=== PATIENT | male | born 1995 | race African-American/Black ===

== ENCOUNTER 2021-10-11 13:32 | Observation (INO) | payer BC, SELFPAY ==
[2021-10-11 07:45] VITALS: BP 131/78; PULSE 88; RESP 12; TEMP 36.3; O2SAT 100
[2021-10-11 08:37] VITALS: BMI 26.6
--- NOTE | 2021-10-11 08:53 | ADMGEN ---
This patient, Willa Gomez, was admitted to 2 Medical Room 249-01. Patient/family oriented to hospital policies and general routines including ID bracelet, bed and alarms, visiting hours, pain management, procedures, bathroom and other care routines, personal items, smoking policy, room service/diet, and visiting hours. Information on how to activate the Rapid Response Team has been discussed. Patient/Family are encouraged to report perceived risks to care and to ask questions if they do not understand what they are told or what they should do. Patient in bed resting comfortably with no complaints at this time. Will continue to monitor patient.
[2021-10-11 09:12] LABS: Hematocrit 48.2 % (42.0-52.0); Mean Corpuscular HGB Conc 33.2 g/dl (32-36); Mean Corpuscular Hemoglobin 26.8 pg (26-34); Mean Corpuscular Volume 80.6 fl (80-100); Platelet Count Result 300 k/mm3 (150-375); Red Blood Count 5.98 M/mm3 (4.6-6.20); White Blood Count 8.6 K/mm3 (4.5-10.0)
[2021-10-11 09:23] LABS: Alanine Aminotransferase 22 U/L (4-50); Alkaline Phosphatase 58 U/L (38-126); Anion Gap 10 mmol/L (8-16); Aspartate Amino Transferase 26 U/L (17-59); Bilirubin,Total 0.5 mg/dL (0.2-1.3); Blood Urea Nitrogen 12 mg/dL (9-20); Calcium 9.1 mg/dL (8.4-10.2); Carbon Dioxide 24 mmol/L (22-30); Chloride 104 mmol/L (98-107); Estimated CRCL calculation 86 ml/min; Estimated Glomerular Filt Rate > 60; Glucose 105 mg/dL (65-110); Magnesium 1.7 mg/dL (1.6-2.3); Potassium 3.9 mmol/L (3.4-5.0); Sodium 138 mmol/L (137-145)
[2021-10-11] MEDS: HYDROcodone/acetaminophen (*CRX) 5-325 MG TABLET 1 TAB PO ×3 (09:32→21:26)
[2021-10-11] MEDS: AMOXICILLIN/CLAVULANATE K 500-125 MG TAB 1 TABLET PO ×3 (09:33→21:26)
[2021-10-11] MEDS: SODIUM CHLORIDE 0.9% IV 1,000 ML 150 ML IV CONT ×3 (09:38→21:30)
--- NOTE | 2021-10-11 11:27 | PM.IMHP ---
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 abdominal pain and was persisting he was taken to [facility] Department further evaluation, CT scan of abdomen showed enteritis patient was started on Flagyl and Cipro and discharged, upon arrival at home patient took Flagyl and immediately developed rash the patient went back to the ER was given Benadryl and Pepcid, and transferred here further evaluation as there was no GI at the [facility], patient has no other medical history and is not known to have any allergies and apparently patient had never take Flagyl before, I have started the patient on Augmentin, on IV fluid and clear liquid will continue to monitor patient and reassess in the morning further recommendation to follow patient admitted observation status. Chief Complaint: abdominal pain Review of Systems Review of Systems: All systems reviewed & are unremarkable except as noted in HPI and below PMFSH Social History Social History Smoking status: Never smoker Alcohol intake: never Substance use: never Substance use type: does not use Spiritual care concerns: No Meds Home Medications and Allergies Home Medications Medication Instructions Recorded Confirmed Type No Home Medications 10/11/21 10/11/21 History Allergies Allergy/AdvReac Type Severity Reaction Status Date / Time ibuprofen [From Advil] Allergy Rash Verified 10/11/21 08:44 metronidazole [From Flagyl] Allergy Rash Verified 10/11/21 08:44 Vital Signs Vital Signs - 24 hr 10/11/21 07:45 Temperature 97.4 F L Pulse Rate 88 Respiratory Rate 12 Blood Pressure 131/78 Pulse Oximetry 100 Exam Narrative: Patient is comfortable, NAD HEENT: eyes are clear and none icteric LUNGS: normal respiratory effort ABD: diffusely tender Lower extremities: no edema SKIN: nonjaundiced Neuro: grossly intact. H&P: Results Labs Labs: Short CBC 10/11/21 Range/Units 08:25 WBC 8.6 (4.5-10.0) K/mm3 Hgb 16.0 (14.0-18.0) g/dL Hct 48.2 (42.0-52.0) % Plt Count 300 (150-375) k/mm3 BMP 10/11/21 08:25 Sodium 138 Potassium 3.9 Chloride 104 Carbon Dioxide 24 BUN 12 Creatinine 0.90 Glucose 105 Calcium 9.1 Liver Function 11/14/21 Range/Units 08:25 Total Bilirubin 0.5 (0.2-1.3) mg/dL AST 26 (17-59) U/L ALT 22 (4-50) U/L Alkaline Phosphatase 58 (38-126) U/L Albumin 4.0 (3.5-5.1) g/dL Assessment and Plan Assessment and plan (1) Enteritis: Code(s): K52.9 - Noninfective gastroenteritis and colitis, unspecified Status: Acute Assessment and Plan: 10/11/21 11:27 patient 36-year-old male from [facility] currently at the [employer] for [facility], he developed the abdominal pain and was persisting he was taken to [facility] further evaluation, CT scan of abdomen showed enteritis patient was started on Flagyl and Cipro and discharged, upon arrival at home patient took Flagyl and immediately developed rash the patient went back to the ER was given Benadryl and Pepcid, and transferred here further evaluation as there was no GI at the [facility], patient has no other medical history and is not known to have any allergies and apparently patient had never take Flagyl before, I have started the patient on Augmentin, on IV fluid and clear liquid will continue to monitor patient and reassess in the morning further recommendation to follow Quality VTE Prophylaxis VTE prophylaxis: mechanical ordered
[2021-10-11 14:58] VITALS: BP 127/50; PULSE 90; RESP 16; TEMP 36.7; O2SAT 100
[2021-10-11 22:00] VITALS: BP 134/80; PULSE 77; RESP 18; TEMP 36.7; O2SAT 100
[2021-10-12] MEDS: SODIUM CHLORIDE 0.9% IV 1,000 ML 150 ML IV CONT ×3 (04:35→18:35)
[2021-10-12] MEDS: HYDROcodone/acetaminophen (*CRX) 5-325 MG TABLET 1 TAB PO ×3 (04:43→17:55)
[2021-10-12] MEDS: AMOXICILLIN/CLAVULANATE K 500-125 MG TAB 1 TABLET PO ×3 (05:31→22:07)
[2021-10-12 05:58] LABS: Hematocrit 44.2 % (42.0-52.0); Hemoglobin 14.4 g/dL (14.0-18.0); Mean Corpuscular HGB Conc 32.6 g/dl (32-36); Mean Corpuscular Hemoglobin 26.8 pg (26-34); Mean Corpuscular Volume 82.2 fl (80-100); Mean Platelet Volume 9.9 fl (7.4-10.4); Platelet Count Result 246 k/mm3 (150-375); Red Blood Count 5.38 M/mm3 (4.6-6.20); Red Cell Distribution Width 12.1 % (11.5-14.5)
[2021-10-12 06:00] VITALS: BP 121/73; PULSE 72; RESP 18; TEMP 36.5; O2SAT 100
[2021-10-12 06:09] LABS: Alanine Aminotransferase 19 U/L (4-50); Albumin Level 3.5 g/dL (3.5-5.1); Alkaline Phosphatase 39 U/L (38-126); Anion Gap 3 mmol/L (8-16); Aspartate Amino Transferase 21 U/L (17-59); Bilirubin,Total 0.6 mg/dL (0.2-1.3); Blood Urea Nitrogen 4 mg/dL (9-20); Calcium 8.1 mg/dL (8.4-10.2); Carbon Dioxide 25 mmol/L (22-30); Chloride 109 mmol/L (98-107); Estimated CRCL calculation 86 ml/min; Estimated Glomerular Filt Rate > 60; Glucose 114 mg/dL (65-110); Magnesium 1.5 mg/dL (1.6-2.3); Potassium 4.4 mmol/L (3.4-5.0); Sodium 137 mmol/L (137-145)
[2021-10-12] MEDS: PANTOPRAZOLE SODIUM IV 40 MG VIAL IV PUSH (09:04)
[2021-10-12 14:30] VITALS: BP 123/75; PULSE 68; RESP 16; TEMP 36.7; O2SAT 100
--- NOTE | 2021-10-12 15:31 | WPDGICN ---
Assessment and Plan Assessment and plan (1) Epigastric pain: Code(s): R10.13 - Epigastric pain Status: Acute Assessment and Plan: will do EGD to check if ulcers, esophagitis or any other abnormalities that could explain pain also will get pancreatic enzymes denies previous episodes (2) Abnormal CT scan, stomach: Code(s): R93.3 - Abnormal findings on diagnostic imaging of other parts of digestive tract Status: Acute Assessment and Plan: noted significant distended stomach by CT scan egd in am (3) Enteritis: Code(s): K52.9 - Noninfective gastroenteritis and colitis, unspecified Status: Acute Assessment and Plan: no sick contacts, had some diarrhea denies fever GI Consult Note Consult date/time: 10/12/21 15:31 Reason for consult: epigastric pain HPI: Willa Gomez is a 26 year old male with no chronic medical problems and originally from [place], [place] last 4 months currently at the [employer]. He started with new onset of epigastric pain 2 days ago and initially seen at [facility] in [place], had CT scan of abdomen that was reviewed that showed enteritis with mild dilated SB and also distended stomach then started on Flagyl and Cipro and discharged but returned to ER because worsening pain after eating, also noted loose stools. I was called by ERP to transfer him to our hospital because hospital did not have GI provider. He had liquid diet but after trying to advance to soft diet then pain gets worse. Never had scopes, he is not taking any meds otherwise. CBC and CMP normal. Review of Systems Constitutional: Constitutional: Denies headache(s) and Denies weakness Eyes: Eyes: Denies blurry vision ENT: Reports Normal hearing present, Denies headache(s) and Denies neck pain Cardiovascular: Cardiovascular: Denies chest pain and Denies dyspnea Respiratory: Respiratory: Denies dyspnea Gastrointestinal: Gastrointestinal: Reports no additional gastrointestinal complaints Genitourinary: Genitourinary: Denies dysuria Musculoskeletal: Musculoskeletal: Denies neck pain Integumentary/Breasts: Skin/Breast: Denies dry skin Neurologic: Reports Normal hearing present, Denies headache(s) and Denies weakness Psychiatric: Psychiatric: Denies anxiety Endocrine: Endocrine: Denies change in body appearance Hematologic/Lymphatic: Hematologic/Lymphatic: Denies easy bleeding Allergic/Immunologic: Allergic/Immunologic: Denies urticaria [facility] Past Medical History Medical History (Updated 10/12/21 @ 15:38 by Jose Neil MD) Abnormal CT scan, stomach Epigastric pain Social History Social History Smoking status: Never smoker Alcohol intake: never Substance use: never Substance use type: does not use Spiritual care concerns: No Meds Home Medications and Allergies Home Medications Medication Instructions Recorded Confirmed Type No Home Medications 10/11/21 10/11/21 History Allergies Allergy/AdvReac Type Severity Reaction Status Date / Time ibuprofen [From Advil] Allergy Rash Verified 10/11/21 08:44 metronidazole [From Flagyl] Allergy Rash Verified 10/11/21 08:44 Vital Signs Vital Signs - 24 hr 10/11/21 22:00 10/12/21 06:00 10/12/21 14:30 Temperature 98.0 F 97.7 F 98.0 F Pulse Rate 77 72 68 Respiratory Rate 18 18 16 Blood Pressure 134/80 121/73 123/75 Pulse Oximetry 100 100 100 Exam Const: General: comfortable and no acute distress HENMT: General nose exam: Normal nares present Eyes: General: appearance normal, both eyes and all related structures Neck: Neck: no JVD Resp: Auscultation: clear to auscultation bilaterally Cardio: Rate: regular rate Rhythm: regular rhythm GI: Inspection: non-distended GI Palp: Yes Soft to palpation and Yes Tenderness to palpation present (GI) (mild tpp in epigastric, no rebound) Auscultation: normal bowel sounds Skin: General skin
--- NOTE | 2021-10-12 16:45 | PM.IMPN ---
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-old male from [facility] currently at the [facility], he developed the abdominal pain and was persisting he was taken to [facility] further evaluation, CT scan of abdomen showed enteritis patient was started on Flagyl and Cipro and discharged, upon arrival at home patient took Flagyl and immediately developed rash the patient went back to the ER was given Benadryl and Pepcid, and transferred here further evaluation as there was no GI at the [facility], patient has no other medical history and is not known to have any allergies and apparently patient had never take Flagyl before, I have started the patient on Augmentin, on IV fluid and clear liquid will continue to monitor patient and reassess in the morning further recommendation to follow. 10/12/2021 Interval history this morning patient clinical symptoms were improved and he was tolerating clear liquid, we advanced to full liquid however patient developed more severe, GI was consulted and patient was evaluated is scheduled for EGD tomorrow and further recommendation to follow Subjective Date/time seen: 10/12/21 16:45 patient 36-year-old male from [facility] currently at the [facility], he developed the abdominal pain and was persisting he was taken to [facility] further evaluation, CT scan of abdomen showed enteritis patient was started on Flagyl and Cipro and discharged, upon arrival at home patient took Flagyl and immediately developed rash the patient went back to the ER was given Benadryl and Pepcid, and transferred here further evaluation as there was no GI at the [facility], patient has no other medical history and is not known to have any allergies and apparently patient had never take Flagyl before, I have started the patient on Augmentin, on IV fluid and clear liquid will continue to monitor patient and reassess in the morning further recommendation to follow. 10/12/2021 Interval history this morning patient clinical symptoms were improved and he was tolerating clear liquid, we advanced to full liquid however patient developed more severe, GI was consulted and patient was evaluated is scheduled for EGD tomorrow and further recommendation to follow Review of Systems Review of Systems: All systems reviewed & are unremarkable except as noted in HPI and below Exam Narrative: Patient is comfortable, NAD HEENT: eyes are clear and none icteric LUNGS: normal respiratory effort ABD: diffusely tender Lower extremities: no edema SKIN: nonjaundiced Neuro: grossly intact. Objective Data Vital Signs Vital Signs: Vital Signs - 24 hr 10/11/21 22:00 10/12/21 06:00 10/12/21 14:30 Temperature 98.0 F 97.7 F 98.0 F Pulse Rate 77 72 68 Respiratory Rate 18 18 16 Blood Pressure 134/80 121/73 123/75 Pulse Oximetry 100 100 100 Intake/Output Intake/Output: Intake & Output 10/09/21 10/10/21 10/11/21 10/12/21 23:59 23:59 23:59 23:59 Intake Total 2660 2360 Balance 2660 2360 Meds/Results Medications: Active Medications Generic Name Dose Route Start Last Admin Trade Name Freq PRN Reason Stop Dose Admin Hydrocodone Bitart/Acetaminophen 1 tab 10/11/21 09:06 10/12/21 11:51 Hydrocodone/Acetaminophen (*Crx) 5-325 Mg Tablet PO 1 tab Q6H PRN Administration Pain Amoxicillin/Clavulanate Potassium 1 tablet 10/11/21 09:06 10/12/21 14:19 Amoxicillin/Clavulanate K 500-125 Mg Tab PO 1 tablet Q8HR FERNANDO Administration Sodium Chloride 1,000 mls @ 150 mls/hr 10/11/21 08:15 10/12/21 11:53 Normal Saline Iv IV CONT 150 mls/hr .Q6H40M FERNANDO Administration Pantoprazole Sodium 40 mg 10/12/21 09:00 10/12/21 09:04 Pantoprazole Sodium Iv 40 Mg Vial IV PUSH 40 mg QAM FERNANDO Administration
[2021-10-12 20:00] VITALS: PULSE 62; RESP 21; O2SAT 100
[2021-10-12 22:00] VITALS: BP 124/63; PULSE 62; RESP 21; TEMP 36.9; O2SAT 100
[2021-10-13] VITALS (7 sets, daily range): BP systolic 105–139; BP diastolic 54–85; PULSE 66–87; RESP 16–21; TEMP 36.3–36.6; O2SAT 96–100
[2021-10-13] MEDS: SODIUM CHLORIDE 0.9% IV 1,000 ML 150 ML IV CONT ×2 (02:11→08:36)
[2021-10-13] MEDS: AMOXICILLIN/CLAVULANATE K 500-125 MG TAB 1 TABLET PO ×2 (05:37→13:25)
[2021-10-13 05:58] LABS: Hematocrit 42.5 % (42.0-52.0); Hemoglobin 14.1 g/dL (14.0-18.0); Mean Corpuscular HGB Conc 33.2 g/dl (32-36); Mean Corpuscular Hemoglobin 26.3 pg (26-34); Mean Corpuscular Volume 79.1 fl (80-100); Mean Platelet Volume 9.4 fl (7.4-10.4); Platelet Count Result 267 k/mm3 (150-375); Red Blood Count 5.37 M/mm3 (4.6-6.20); Red Cell Distribution Width 11.9 % (11.5-14.5); White Blood Count 5.4 K/mm3 (4.5-10.0)
[2021-10-13 06:11] LABS: Alanine Aminotransferase 19 U/L (4-50); Albumin Level 3.7 g/dL (3.5-5.1); Alkaline Phosphatase 39 U/L (38-126); Amylase 98 U/L (30-110); Anion Gap 3 mmol/L (8-16); Aspartate Amino Transferase 22 U/L (17-59); Bilirubin,Total 0.6 mg/dL (0.2-1.3); Blood Urea Nitrogen 5 mg/dL (9-20); Calcium 8.5 mg/dL (8.4-10.2); Carbon Dioxide 29 mmol/L (22-30); Chloride 106 mmol/L (98-107); Estimated CRCL calculation 78 ml/min; Estimated Glomerular Filt Rate > 60; Glucose 85 mg/dL (65-110); Lipase 65 U/L (23-300); Magnesium 1.7 mg/dL (1.6-2.3); Potassium 3.9 mmol/L (3.4-5.0); Sodium 138 mmol/L (137-145)
[2021-10-13] MEDS: PANTOPRAZOLE SODIUM IV 40 MG VIAL IV PUSH (08:33)
--- NOTE | 2021-10-13 09:43 | PC.NURSE ---
Pt to GI lab per wheelchair.
[2021-10-13] MEDS: LACTATED RINGERS 1,000 ML 150 ML IV CONT (09:59)
--- NOTE | 2021-10-13 10:18 | WPDANESEPPF ---
Anes - Initial Pre Proc Eval Procedure: Operation Date: 10/13/21 11:00 Proposed Procedures p Esophagogastroduodenoscopy - Jose Neil MD Date/Time: 10/13/21 10:18 Surgeon: Melissa Rivera MD Pre Op Diagnosis: Enteritis abd pain Patient Data Age: 26 Gender: M Height: 1.57 m Weight: 66 kg Last Vital Signs Temp 97.6 F 10/13/21 09:50 Pulse 73 10/13/21 09:50 Resp 18 10/13/21 09:50 BP 121/62 10/13/21 09:50 Pulse Ox 100 10/13/21 09:50 Allergies Allergy/AdvReac Type Severity Reaction Status Date / Time ibuprofen [From Advil] Allergy Rash Verified 10/13/21 09:55 metronidazole [From Flagyl] Allergy Rash Verified 10/13/21 09:55 Home Medications Medication Instructions Recorded Confirmed Type No Home Medications 10/11/21 10/13/21 History Laboratory Tests 10/13/21 10/13/21 05:28 05:28 WBC 5.4 K/mm3 K/mm3 (4.5-10.0) RBC 5.37 M/mm3 M/mm3 (4.6-6.20) Hgb 14.1 g/dL g/dL (14.0-18.0) Hct 42.5 % % (42.0-52.0) MCV 79.1 fl L fl (80-100) MCH 26.3 pg pg (26-34) MCHC 33.2 g/dl g/dl (32-36) RDW 11.9 % % (11.5-14.5) Plt Count 267 k/mm3 k/mm3 (150-375) MPV 9.4 fl fl (7.4-10.4) Sodium 138 mmol/L mmol/L (137-145) Potassium 3.9 mmol/L mmol/L (3.4-5.0) Chloride 106 mmol/L mmol/L (98-107) Carbon Dioxide 29 mmol/L mmol/L (22-30) Anion Gap 3 mmol/L L mmol/L (8-16) BUN 5 mg/dL L mg/dL (9-20) Creatinine 1.00 mg/dL mg/dL (0.7-1.3) Estim Creat Clear Calc 78 ml/min ml/min Estimated GFR > 60 (59 - ) Glucose 85 mg/dL mg/dL (65-110) Calcium 8.5 mg/dL mg/dL (8.4-10.2) Magnesium 1.7 mg/dL mg/dL (1.6-2.3) Total Bilirubin 0.6 mg/dL mg/dL (0.2-1.3) AST 22 U/L U/L (17-59) ALT 19 U/L U/L (4-50) Alkaline Phosphatase 39 U/L U/L (38-126) Total Protein 6.0 g/dL L g/dL (6.3-8.2) Albumin 3.7 g/dL g/dL (3.5-5.1) Amylase 98 U/L U/L (30-110) Lipase 65 U/L U/L (23-300) Patient hx anesthesia problems: none Family hx anesthesia problems: none Results Review: All pre-operative results and documents have been reviewed as part of the pre-operative evaluation. [facility], [facility] Past Medical History Medical History (Updated 10/12/21 @ 15:38 by Jose Neil MD) Abnormal CT scan, stomach Epigastric pain Social History Social History Smoking status: Never smoker Alcohol intake: never Substance use: never Substance use type: does not use Spiritual care concerns: No Anes - Eval Final PreProcedure Day of Procedure 10/13/21 10:18 Patient weight: normal Heart: regular rate and rhythm Lungs: clear to auscultation Airway: Mallampati scale class II Neurological: alert and oriented Last oral intake: >/= 8 hours ASA classification: II Emergent: no Anesthetic plan: proceed Anesthesia type and monitoring: general GIVS and standard monitoring Results Review: All pre-operative results and documents have been reviewed as part of the pre-operative evaluation. Informed Consent: The patient's anesthetic plan and its attendant risks and benefits were discussed with the patient/family/POA. Questions were solicited and answers provided to the satisfaction of the patient/family/POA.
--- NOTE | 2021-10-13 11:18 | PC.NURSE ---
Pt return from GI lab per wheelchair.
--- NOTE | 2021-10-13 15:16 | PM.IMPN ---
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 and was persisting he was taken to [facility] further evaluation, CT scan of abdomen showed enteritis patient was started on Flagyl and Cipro and discharged, upon arrival at home patient took Flagyl and immediately developed rash the patient went back to the ER was given Benadryl and Pepcid, and transferred here further evaluation as there was no GI at the [facility], patient has no other medical history and is not known to have any allergies and apparently patient had never take Flagyl before, I have started the patient on Augmentin, on IV fluid and clear liquid will continue to monitor patient and reassess in the morning further recommendation to follow. 10/12/2021 Interval history this morning patient clinical symptoms were improved and he was tolerating clear liquid, we advanced to full liquid however patient developed more severe, GI was consulted and patient was evaluated is scheduled for EGD tomorrow and further recommendation to follow 10/13/2021 EGD with mild erosive gastritis seen in the antrum with erosive changes and erythematous with no ulceration. Biopsies taken. On PPI and Carafate GI okay to go home if tolerating diet will advance diet and see how he feels. Currently on Augmentin Subjective Date/time seen: 10/13/21 15:16 Interval history: Underwent EGD today which showed mild erosive gastritis in the antrum. The gastritis had erythematous and erosive changes with no ulcers. No mucosal bleeding. Biopsies have been taken and sent out for pathology as well as H pylori. He otherwise denies any complaint today no fever chills no nausea vomiting is going to try some diet today wants to get discharged. Review of Systems Review of Systems: All systems reviewed & are unremarkable except as noted in HPI and below Exam Narrative: Patient is comfortable, NAD HEENT: eyes are clear and none icteric LUNGS: normal respiratory effort bilaterally clear to auscultation ABD: Soft mild tenderness in epigastric area no guarding or rigidity Lower extremities: no edema clubbing or cyanosis SKIN: nonjaundiced Neuro: grossly intact. Moving all his extremities alert and oriented x3 Objective Data Vital Signs Vital Signs: Vital Signs - 24 hr 10/12/21 20:00 10/12/21 22:00 10/13/21 06:00 Temperature 98.4 F 97.4 F L Pulse Rate 62 62 66 Respiratory Rate 21 H 21 H 21 H Blood Pressure 124/63 109/54 L Pulse Oximetry 100 100 100 10/13/21 09:50 10/13/21 10:36 10/13/21 10:46 Temperature 97.6 F Pulse Rate 73 87 85 Respiratory Rate 18 18 17 Blood Pressure 121/62 109/56 L 105/54 L Pulse Oximetry 100 96 96 10/13/21 10:56 10/13/21 11:21 10/13/21 13:50 Temperature 97.9 F 97.9 F Pulse Rate 73 69 67 Respiratory Rate 20 20 16 Blood Pressure 129/85 124/82 139/63 Pulse Oximetry 99 100 100 Intake/Output Intake/Output: Intake & Output 10/10/21 10/11/21 10/12/21 10/13/21 23:59 23:59 23:59 23:59 Intake Total 2660 4280 8533 Output Total 500 Balance 2660 4280 8033 Meds/Results Medications: Active Medications Generic Name Dose Route Start Last Admin Trade Name Freq PRN Reason Stop Dose Admin Hydrocodone Bitart/Acetaminophen 1 tab 10/11/21 09:06 10/12/21 17:55 Hydrocodone/Acetaminophen (*Crx) 5-325 Mg Tablet PO 1 tab Q6H PRN Administration Pain Amoxicillin/Clavulanate Potassium 1 tablet 10/11/21 09:06 10/13/21 13:25 Amoxicillin/Clavulanate K 500-125 Mg Tab PO 1 tablet Q8HR FERNANDO Administration Sodium Chloride 1,000 mls @ 150 mls/hr 10/11/21 08:15 10/13/21 11:18 Normal Saline Iv IV CONT 150 mls/hr .Q6H40M FERNANDO Infusion Pantoprazole Sodium 40 mg 10/14/21
--- NOTE | 2021-10-13 17:39 | PM.DS ---
DS: Admitting Diagnosis Discharge Date 10/13/2021 Admitting Diagnosis abdominal pain DS: Discharge Diagnosis Discharge Diagnosis (1) Enteritis: Code(s): K52.9 - Noninfective gastroenteritis and colitis, unspecified Status: Acute Assessment and Plan: this is a 36-year-old male from [facility] currently at the [employer], who developed the abdominal pain and was persisting he was taken to [facility] further evaluation, CT scan of abdomen showed enteritis patient was started on Flagyl and Cipro and discharged, upon arrival at home patient took Flagyl and immediately developed rash the patient went back to the ER was given Benadryl and Pepcid, and transferred here further evaluation as there was no GI at the [facility]. Abdominal CT done in the outlying hospital was attached here with the discharge summary. patient has no other medical history and is not known to have any allergies and apparently patient had never take Flagyl before, Patient was started on Augmentin, on IV fluid and clear liquid and was monitored in advancing the diet however upon advancing he had abdominal pain that occur worse and hence GI was consulted and schedule for EGD. EGD was done on 10/13/2021 which showed mild erosive gastritis and hiatal hernia. He was advised to be on pantoprazole daily it was not she sure whether this was enough to cause pain however no other findings were found. He was started on antibiotics as well as pantoprazole and was started on a diet which was tolerated well. We felt well and he would prefer to go home. I have advised that he follow-up with the GI doctor in 4 weeks and his primary doctor in week. He will be given Augmentin for 7 days course. Dicyclomine will be added for abdominal cramps that he can take as needed. DS: Summary Hospital Course Hospital Course: see above Time Spent with Patient Time attestation: Total time spent providing and/or coordinating discharge services: 45 minutes Exam Narrative: Patient is comfortable, NAD HEENT: eyes are clear and none icteric LUNGS: normal respiratory effort bilaterally clear to auscultation ABD: Soft mild tenderness in epigastric area no guarding or rigidity Lower extremities: no edema clubbing or cyanosis SKIN: nonjaundiced Neuro: grossly intact. Moving all his extremities alert and oriented x3 DS: Data Data Completed and Pending Pending studies at discharge: Pending at discharge 10/13/21 10:35 Surgical [PTH] Routine Labs on day of discharge: Labs from last 24 hours 10/13/21 10/13/21 05:28 05:28 WBC 5.4 RBC 5.37 Hgb 14.1 Hct 42.5 MCV 79.1 L MCH 26.3 MCHC 33.2 RDW 11.9 Plt Count 267 MPV 9.4 Sodium 138 Potassium 3.9 Chloride 106 Carbon Dioxide 29 Anion Gap 3 L BUN 5 L Creatinine 1.00 Estim Creat Clear Calc 78 Estimated GFR > 60 Glucose 85 Calcium 8.5 Magnesium 1.7 Total Bilirubin 0.6 AST 22 ALT 19 Alkaline Phosphatase 39 Total Protein 6.0 L Albumin 3.7 Amylase 98 Lipase 65 Procedures/Treatments: EGD done on 10/13/2021: The esophagus was examined and the mucosa was normal with a normal Z-line and no ulcers or masses. No esophagitis, no Robertson's, os small hiatal hernia was found at the GE junction. The hiatal hernia appeared a depth of 38 cm to 39 cm from the incisors. This is about 1 cm in size. Mild erosive gastritis was seen in the antrum. The gastritis had erythematous and erosive changes, no ulcer. There was no mucosal bleeding. Multiple biopsies were taken for pathology and H pylori. The bulb and 2nd portion of duodenum was normal at with no ulcers or masses. Multiple biopsies were taken to rule out celiac sprue. Imaging Radiologist's impression: EXAM DESCRIPTION: CT ABDOMEN PELVIS W/ CONTRAST REASON FOR STUDY: RLQ abdominal pain, appendicitis suspected (Age > 14y) Duration = 1 hour TECHNIQUE: CT scan of t
--- NOTE | 2021-10-14 09:41 | WPDANESPN ---
Anes - Prog Note Post-Op Date/Time: 10/14/21 09:41 Cardiovascular status: normal Respiratory status: normal Airway patency: baseline Mental status: baseline Post-Op hydration status: normal Vital Signs: Last Vital Signs Temp 97.9 F 10/13/21 13:50 Pulse 67 10/13/21 13:50 Resp 16 10/13/21 13:50 BP 139/63 10/13/21 13:50 Pulse Ox 100 10/13/21 13:50 Pain Score (VAS): 0/10 I/O: Intake & Output 10/13/21 10/14/21 10/14/21 23:59 07:59 15:59 Intake Total 1660 Balance 1660 Laboratory Tests 10/13/21 05:28 10/13/21 05:28 Post-procedural complaints: none and pruritis Patient Feedback: Patient satisfied with anesthetic care.
== END 2021-10-13 19:50 | disposition home or self-care (01) ==
PROVIDERS: Internal Medicine Gastroenterology; Admitting Provider Family Medicine; Visit Provider Internal Medicine
PROC: 0DJ08ZZ Inspection of Upper Intestinal Tract, Via Natural or Artificial Opening Endoscopic (ICD-10-PCS; CPT 43235; principal; 2021-10-13 11:00)
DX: K52.9 Noninfective gastroenteritis and colitis, unspecified (principal); K44.9 Diaphragmatic hernia without obstruction or gangrene; K29.50 Unspecified chronic gastritis without bleeding
CPT/HCPCS: 43239; 36415; 80053; 82150; 83690; 83735; 85027; 87081; 88305; 88342; 96360; 96361; A9270; C9113; G0378; J2704; J7030; J7120